=== PATIENT | female | born 1955 | race Caucasian/White ===

== ENCOUNTER 2025-01-17 10:04 | Emergency (ER) | payer MEDICARE ==
[~2025-01-17] VITALS: Ht 165.1 cm; Wt 91.6 kg
[2025-01-17 10:10] VITALS: BP 149/89
[2025-01-17] MEDS ORDERED: BUPR150T5 PO (10:52)
[2025-01-17] MEDS ORDERED: APIX5TAB4 PO (10:52)
[2025-01-17] MEDS ORDERED: METR70GE2 VG (10:52)
[2025-01-17] MEDS ORDERED: TRAZ-182 PO (10:52)
[2025-01-17] MEDS ORDERED: OMEP40CA21 PO (10:52)
[2025-01-17] MEDS ORDERED: ESTRADIOL VAGINAL CR VG (10:52)
[2025-01-17] MEDS ORDERED: POLY17PO4 PO (10:52)
[2025-01-17] MEDS ORDERED: MYCO360T PO (10:52)
[2025-01-17] MEDS ORDERED: CRAN1CAP5 PO (10:52)
[2025-01-17] MEDS ORDERED: ONDANSETRON 4 MG/2 ML VIAL ONE (11:00)
[2025-01-17] MEDS ORDERED: KETOROLAC TROMETHAMINE 15 MG INJ ONE (11:00)
[2025-01-17 11:08] LABS: PLATELET COUNT (AUTO) 336 K/uL (179-408); RED BLOOD CELL COUNT(AUTO) 4.47 MIL/uL (3.63-4.92); RED CELL DISTRIBUTION WIDTH 16.8 % (12.3-17.7); WHITE BLOOD COUNT (AUTO) 7.5 K/uL (3.8-11.8)
[2025-01-17 11:17] LABS: CREATININE 0.9 mg/dL (0.6-1.3); SODIUM SERUM 143 mmol/L (136-145); UREA NITROGEN, BLOOD 12 mg/dL (7-18)
[2025-01-17 11:33] LABS: ERYTHROCYTE SEDIMENTATION RATE 11 MM/HR (0-20)
[2025-01-17] MEDS: ONDANSETRON 4 MG/2 ML VIAL IV ONE (11:34)
[2025-01-17] MEDS: KETOROLAC TROMETHAMINE 15 MG INJ IVP ONE (11:36)
[2025-01-17 14:35] VITALS: BP 119/73; TEMP 97.8; O2SAT 95
== END 2025-01-17 13:40 | disposition home or self-care (01) ==
LOC: ER 10:04
DX: G43.809 Other migraine, not intractable, without status migrainosus (principal); I50.9 Heart failure, unspecified; Q21.12 Patent foramen ovale; L29.9 Pruritus, unspecified; Z79.01 Long term (current) use of anticoagulants; Z79.624 Long term (current) use of inhibitors of nucleotide synthesis; Z79.899 Other long term (current) drug therapy; Z85.3 Personal history of malignant neoplasm of breast; Z86.73 Personal history of transient ischemic attack (TIA), and cerebral infarction without residual deficits; Z88.0 Allergy status to penicillin; Z88.1 Allergy status to other antibiotic agents; Z88.5 Allergy status to narcotic agent; Z90.710 Acquired absence of both cervix and uterus
CPT/HCPCS: 99285; 96374; 70450; 96375; 80048; 85025; 85651; 85730; 84484; 36415; 93005; J1885; J2405; A4606; A4663